=== PATIENT | female | born 1995 | race Caucasian/White ===

== ENCOUNTER 2024-05-17 07:22 | Inpatient (IN) | payer OTHER ==
[2024-05-17] MEDS: ELECTROLYTE-148 SOLN 500 ML IV ONE (08:15)
[2024-05-17 08:31] VITALS: BMI 26.6
[2024-05-17] MEDS ORDERED: OXYTOCIN 30 UNITS in 0.9% NS 30 UNIT/500 ML INFUS.BAG IVPB ONE (08:35)
[2024-05-17] MEDS: ELECTROLYTE-148 SOLN 1,000 ML IV SCH (08:45)
[2024-05-17] MEDS: OXYTOCIN 30 UNITS in 0.9% NS 30 UNIT/500 ML INFUS.BAG IVPB SCH (08:45)
[2024-05-17 09:15] LABS: INR 0.96 (0.83-1.09)
[2024-05-17 09:18] LABS: ACTIVATED PTT 25.7 SECONDS (25.2-36.5)
[2024-05-17 09:33] LABS: POTASSIUM 3.9 mmol/L (3.5-5.1)
[2024-05-17 09:36] LABS: CALCIUM 8.7 mg/dL (8.5-10.1)
[2024-05-17 09:37] LABS: BLOOD UREA NITROGEN 11.6 mg/dL (7-18)
[2024-05-17 09:40] LABS: CREATININE 0.6 mg/dL (0.55-1.3)
[2024-05-17 10:00] LABS: SYPHILIS W/ RPR CONF NON-REACTIVE (NONREACTIVE)
[2024-05-17 10:29] LABS: HIV INTERPRETATION NEGATIVE (NEGATIVE)
[2024-05-17 11:20] LABS: BASO % 0.4 % (0-2.0); EOS % 0.9 % (0-4.5); HEMATOCRIT 26.4 % (32.4-45.2); HEMOGLOBIN 8.3 GM/dL (10.7-15.3); MCHC 31.6 g/dl (32.0-36.0); MEAN PLT VOLUME 9.9 fl (7.5-11.1); NEUT % 72.7 % (42.8-82.8); PLATELET COUNT 235 10^3/uL (134-434); RBC 3.47 M/mm3 (3.60-5.2); WHITE BLOOD COUNT 9.3 K/mm3 (4.0-10.0)
[2024-05-17] MEDS ORDERED: NALOXONE HCL 0.4 MG/ML VIAL IVPUSH PRN (13:39)
[2024-05-17] MEDS ORDERED: BUPIVACAINE HCL/PF 0.25% (2.5MG/ML) 10 ML VIAL ONE (13:46)
[2024-05-17] MEDS ORDERED: FENTANYL CITRATE/PF 50 MCG/ML VIAL ONE (13:46)
[2024-05-17] MEDS ORDERED: FENTANYL/BUPIVACAINE/NS/PF - PCEA - 50 ML DISP.SYRIN EP ONE ×3 (13:48→22:20)
[2024-05-17] MEDS: FENTANYL/BUPIVACAINE/NS/PF - PCEA - 50 ML DISP.SYRIN EP SCH (14:00)
[2024-05-18] MEDS ORDERED: LIDOCAINE HCL 1% PRESERVATIVE FREE - 30ML VIAL ONE (00:42)
[2024-05-18] MEDS ORDERED: OXYTOCIN 20 UNITS in 0.9% NS 20 UNIT/1,000 ML INFUS.BAG IV ONE (00:43)
[2024-05-18] MEDS: OXYTOCIN 20 UNITS in 0.9% NS 20 UNIT/1,000 ML INFUS.BAG IV SCH (02:54)
[2024-05-18] MEDS ORDERED: BENZOCAINE 28 GM HEMORRHOIDAL OINTMENT TP PRN (03:18)
[2024-05-18] MEDS ORDERED: WITCH HAZEL 50% (TUCKS) 40 PAD/JAR PAD TP PRN (03:18)
[2024-05-18] MEDS ORDERED: ACETAMINOPHEN 325 MG TABLET (FP) PO PRN (03:18)
[2024-05-18] MEDS ORDERED: METHYLERGONOVINE MALEATE 0.2 MG/1 ML AMP IM PRN (03:18)
[2024-05-18] MEDS ORDERED: oxyCODONE HCL 5 MG TABLET PO PRN (03:18)
[2024-05-18] MEDS ORDERED: BISACODYL 10 MG SUPP.RECT RC PRN (03:18)
[2024-05-18] MEDS ORDERED: IBUPROFEN 600 MG TABLET (FP) PO ONE (04:14)
[2024-05-18] MEDS: IBUPROFEN 600 MG TABLET (FP) PO PRN (04:20)
[2024-05-18] MEDS: BENZOCAINE 20% 57 GM BOTTLE TP PRN (09:56)
[2024-05-19 09:16] LABS: BASO % 0.1 % (0-2.0); EOS % 1.1 % (0-4.5); HEMOGLOBIN 7.8 GM/dL (10.7-15.3); LYMPH % 10.2 % (8-40); MCH 22.6 pg (25.7-33.7); MCHC 30.2 g/dl (32.0-36.0); MEAN CELL VOLUME 74.9 fl (80-96); MEAN PLT VOLUME 9.8 fl (7.5-11.1); MONO % 4.2 % (3.8-10.2); NEUT % 84.4 % (42.8-82.8); PLATELET COUNT 241 10^3/uL (134-434); RBC 3.46 M/mm3 (3.60-5.2); RDW 18.2 % (11.6-15.6); WHITE BLOOD COUNT 17.3 K/mm3 (4.0-10.0)
[2024-05-19] MEDS: SENNOSIDES/DOCUSATE COMBO (SENNA PLUS) TABLET (UD) PO PRN (21:59)
[2024-05-19] MEDS: IRON SUCROSE INJECTION 200 MG in SODIUM CHLORIDE 100 ML IVPB ONE (21:59)
[2024-05-20 06:33] VITALS: RESP 18
[2024-05-20 10:29] VITALS: BP 108/64; PULSE 100; TEMP 98.1
== END 2024-05-20 14:30 | disposition home or self-care (01) | DRG 807 ==
LOC: JLDR 07:22 → J3W 05-18 04:58
PROVIDERS: ADMIT Specialist; ATTEND Specialist
PROC: 10E0XZZ Delivery of Products of Conception, External Approach (ICD-10-PCS; principal; 2024-05-18)
PROC: 0W8NXZZ Division of Female Perineum, External Approach (ICD-10-PCS; 2024-05-18)
DX: O69.1XX0 Labor and delivery complicated by cord around neck, with compression, not applicable or unspecified (principal); Z37.0 Single live birth; Z3A.39 39 weeks gestation of pregnancy
CPT/HCPCS: 36415; 59409; 80048; 85025; 85610; 85730; 86780; 86850; 86900; 86901; 87389; J1756